=== PATIENT | male | born 1965 | race American Indian/Alaskan Native ===

== ENCOUNTER 2017-08-13 11:25 | Emergency (ER) | payer OTHER ==
[2017-08-13 12:01] LABS: Basophils % (Auto) 1.1 % (0.0-1.8); Eosinophils % (Auto) 0.4 % (0.0-4.3); Hematocrit 45.8 % (35.5-45.6); Hemoglobin 15.4 gm/dl (11.8-15.2); Mean Corpuscular HGB Conc 34 % (32-34); Mean Corpuscular Hemoglobin 31 pg (28-32); Mean Corpuscular Volume 94 fl (84-94); Platelet Count 207 K/mm3 (140-440); Red Blood Count 4.89 M/mm3 (3.65-5.03); Red Cell Distribution Width 16.3 % (13.2-15.2); White Blood Count 9.6 K/mm3 (4.5-11.0)
[2017-08-13] MEDS ORDERED: LIBRIUM PO PRN (12:07)
[2017-08-13] MEDS ORDERED: ATIVAN IV PRN (12:07)
--- NOTE | 2017-08-13 12:07 | Emergency Department Report ---
ED General Adult HPI - General Chief complaint: Seizure Stated complaint: UNRESPONSIVE Time Seen by Provider: 08/13/17 11:59 Source: patient, RN notes reviewed, old records reviewed Mode of arrival: Stretcher Limitations: Altered Mental Status, Other (patient is intoxicated. He is a poor historian.) - History of Present Illness Initial comments: This is a 52-year-old male, the patient is previously unknown to this provider. The patient is stable after being found unresponsive in a hospital elevator, may have had a seizure. Patient indicates that he wants detox from alcohol, apparently he drank earlier on today. The patient denies homicidality and suicidality. The patient denies access to guns and firearms, and he denies hallucinations. He complains of central chest pain, which does not radiate to the back, arms or neck, denies shortness of breath, vomiting diaphoresis, there is no leg pain, there is no leg swelling, no recent trips, no recent surgeries. Patient is unable to describe his exacerbating or relieving factors. -: unknown Consistency: constant Improves with: none Worsens with: none Associated Symptoms: confusion, chest pain, loss of appetite, weakness - Related Data Previous Rx's Medication Instructions Recorded Last Taken Type Phenytoin Sodium Extended 300 mg PO QDAY #30 capsule 08/13/17 Unknown Rx chlordiazePOXIDE [Librium] 25 mg PO Q8H PRN #15 capsule 08/13/17 Unknown Rx Allergies Allergy/AdvReac Type Severity Reaction Status Date / Time No Known Allergies Allergy Unverified 08/13/17 11:28 ED Review of Systems ROS: Stated complaint: UNRESPONSIVE Other details as noted in HPI Comment: Unobtainable due to pts medical conditions ED Past Medical Hx - Past Medical History Previous Medical History?: Yes Hx Seizures: Yes - Surgical History Past Surgical History?: No - Social History Smoking Status: Current Every Day Smoker Substance Use Type: Alcohol - Medications Home Medications: Home Medications Medication Instructions Recorded Confirmed Last Taken Type Phenytoin Sodium Extended 300 mg PO QDAY #30 capsule 08/13/17 Unknown Rx chlordiazePOXIDE [Librium] 25 mg PO Q8H PRN #15 capsule 08/13/17 Unknown Rx ED Physical Exam - General Limitations: Altered Mental Status General appearance: appears intoxicated - Head Head exam: Present: atraumatic, normocephalic - Eye Eye exam: Present: normal appearance, PERRL, EOMI. Absent: nystagmus - ENT ENT exam: Present: normal exam, normal orophraynx, mucous membranes moist, TM's normal bilaterally, normal external ear exam, other (there is no nasal septal hematoma) - Neck Neck exam: Present: normal inspection, full ROM. Absent: tenderness, meningismus - Respiratory Respiratory exam: Present: normal lung sounds bilaterally. Absent: respiratory distress, wheezes, rales, rhonchi, stridor, chest wall tenderness, accessory muscle use, decreased breath sounds, prolonged expiratory - Cardiovascular Cardiovascular Exam: Present: regular rate, normal rhythm, normal heart sounds. Absent: bradycardia, tachycardia, irregular rhythm, systolic murmur, diastolic murmur, rubs, gallop - GI/Abdominal GI/Abdominal exam: Present: soft, normal bowel sounds. Absent: distended, tenderness, guarding, rebound, rigid, pulsatile mass - Rectal Rectal exam: Present: deferred - Extremities Exam Extremities exam: Present: normal inspection, full ROM, normal capillary refill. Absent: pedal edema, joint swelling, calf tenderness - Back Exam Back exam: Present: normal inspection, full ROM. Absent: tenderness, CVA tenderness (R), CVA tenderness (L), muscle spasm, paraspinal tenderness, vertebral tenderness - Neurological Exam Neurological exam: Present: other (there is no facial droop. There is 5 out of 5 strength bilateral upper and lower extremities. The tongue is midline.) - Psychiatric Psychiatric exam: Present: flat affect. Absent: homicidal ideation, suicidal ideation - Skin Skin exam: Present: warm, dry, intact, normal color. Absent: rash ED Course Vital Signs 08/13/17 08/13/17 08/13/17 11:28 11:38 16:32 Temperature 98.1 F 97.9 F Pulse Rate 88 97 H Respiratory 18 16 15 Rate Blood Pressure 118/72 Blood Pressure 97/59 [Left] O2 Sat by Pulse 95 98 100 Oximetry 08/13/17 18:19 Temperature 98.6 F Pulse Rate 75 Respiratory 16 Rate Blood Pressure Blood Pressure 118/72 [Left] O2 Sat by Pulse 99 Oximetry - Reevaluation(s) Reevaluation #1: 08/13/17 13:43 Differential diagnosis: Intracranial injury, cervical spine injury, alcohol withdrawal seizure, convulsion, electrolyte derangement, pneumonia, urinary tract infection Assessment and plan: 52-year-old male who is intoxicated, was found in an elevator, may have had a seizure. No active tongue fasciculations, no active tremors, patient is quite intoxicated at this time. Noncontrast CT scan of the brain and cervical spine negative. Laboratory studies unremarkable, x-ray of the chest unremarkable, urinalysis unremarkable, most likely the patient is simply drunk. I see no indication for antiepileptic drug therapy at this time, patient will be observed on a quality assurance monitor body until he is clinically sober. Repeat EKG, repeat troponin ordered, By history no pulmonary embolus or DVT risk factors, low risk by well's criteria. 13:43 Reevaluation #2: 08/13/17 14:45 Patient now more awake. Requesting to eat. Patient indicates he takes phenytoin/Dilantin. Patient indicates he takes 300 mg. Level is added. Patient has been in the ER for a few hours without any issues with convulsion or seizures. Troponins are negative 2. Repeat EKG is morphologically unchanged from prior EKG. Reevaluation #3: 08/13/17 15:45 Troponin negative 2, repeat level and phenytoin level pending. Blood alcohol level was 0.24 at approximately 12:00 PM, therefore, anticipate clinical sobriety at approximately 6:00 PM. Patient sleeping comfortably, no distress. Care is transferred to the oncoming physician, Dr. Salcedo, to follow-up on repeat blood alcohol level, repeat troponin, and Dilantin level. Thus far, patient has not had any convulsive activity. The patient will also be evaluated by crisis team/mental health to evaluate for suitability for detox. ED Medical Decision Making - Lab Data Result diagrams: 08/13/17 12:18 08/13/17 11:47 Vital Signs 08/13/17 08/13/17 11:28 11:38 Temperature 98.1 F Pulse Rate 88 Respiratory 18 16 Rate Blood Pressure 118/72 O2 Sat by Pulse 95 98 Oximetry Lab Results 08/13/17 08/13/17 08/13/17 Range/Units 11:47 11:47 11:47 WBC 9.6 (4.5-11.0) K/mm3 RBC 4.89 (3.65-5.03) M/mm3 Hgb 15.4 H (11.8-15.2) gm/dl Hct 45.8 H (35.5-45.6) % MCV 94 (84-94) fl MCH 31 (28-32) pg MCHC 34 (32-34) % RDW 16.3 H (13.2-15.2) % Plt Count 207 (140-440) K/mm3 Lymph % (Auto) 20.4 (13.4-35.0) % [place] % (Auto) 8.1 H (0.0-7.3) % Eos % (Auto) 0.4 (0.0-4.3) % Baso % (Auto) 1.1 (0.0-1.8) % Lymph # 2.0 (1.2-5.4) K/mm3 [place] # 0.8 (0.0-0.8) K/mm3 Eos # 0.0 (0.0-0.4) K/mm3 Baso # 0.1 (0.0-0.1) K/mm3 Seg Neutrophils % 70.0 (40.0-70.0) % Seg Neutrophils # 6.7 (1.8-7.7) K/mm3 PT (12.2-14.9) Sec. INR (0.87-1.13) APTT (24.2-36.6) Sec. Sodium 142 (137-145) mmol/L Potassium 3.7 (3.6-5.0) mmol/L Chloride 101.9 (98-107) mmol/L Carbon Dioxide 23 (22-30) mmol/L Anion Gap 21 mmol/L BUN 12 (9-20) mg/dL Creatinine 0.7 L (0.8-1.5) mg/dL Estimated GFR > 60 ml/min BUN/Creatinine Ratio 17 % Glucose 110 H (75-100) mg/dL Calcium 9.0 (8.4-10.2) mg/dL Magnesium (1.7-2.3) mg/dL Total Creatine Kinase (55-170) units/L Troponin T (0.00-0.029) ng/mL Urine Color (Yellow) Urine Turbidity (Clear) Urine pH (5.0-7.0) Ur Specific [place] (1.003-1.030) Urine Protein (Negative) mg/dL Urine Glucose (UA) (Negative) mg/dL Urine Ketones (Negative) mg/dL Urine Blood (Negative) Urine Nitrite (Negative) Urine Bilirubin (Negative) Urine Urobilinogen (<2.0) mg/dL Ur Leukocyte Esterase (Negative) Urine WBC (Auto) (0.0-6.0) /HPF Urine RBC (Auto) (0.0-6.0) /HPF U Epithel Cells (Auto) (0-13.0) /HPF Urine Mucus /HPF Urine Opiates Screen Urine Methadone Screen Ur Barbiturates Screen Ur Phencyclidine Scrn Ur Amphetamines Screen U Benzodiazepines Scrn Urine Cocaine Screen U Marijuana (THC) Screen Drugs of Abuse Note Plasma/Serum Alcohol 0.24 H (0-0.07) gm% 08/13/17 08/13/17 08/13/17 Range/Units 12:03 12:03 12:18 WBC 9.5 (4.5-11.0) K/mm3 RBC 4.77 (3.65-5.03) M/mm3 Hgb 15.3 H (11.8-15.2) gm/dl Hct 44.3 (35.5-45.6) % MCV 93 (84-94) fl MCH 32 (28-32) pg MCHC 35 H (32-34) % RDW 16.5 H (13.2-15.2) % Plt Count 202 (140-440) K/mm3 Lymph % (Auto) (13.4-35.0) % [place] % (Auto) (0.0-7.3) % Eos % (Auto) (0.0-4.3) % Baso % (Auto) (0.0-1.8) % Lymph # (1.2-5.4) K/mm3 [place] # (0.0-0.8) K/mm3 Eos # (0.0-0.4) K/mm3 Baso # (0.0-0.1) K/mm3 Seg Neutrophils % (40.0-70.0) % Seg Neutrophils # (1.8-7.7) K/mm3 PT (12.2-14.9) Sec. INR (0.87-1.13) APTT (24.2-36.6) Sec. Sodium (137-145) mmol/L Potassium (3.6-5.0) mmol/L Chloride (98-107) mmol/L Carbon Dioxide (22-30) mmol/L Anion Gap mmol/L BUN (9-20) mg/dL Creatinine (0.8-1.5) mg/dL Estimated GFR ml/min BUN/Creatinine Ratio % Glucose (75-100) mg/dL Calcium (8.4-10.2) mg/dL Magnesium (1.7-2.3) mg/dL Total Creatine Kinase (55-170) units/L Troponin T (0.00-0.029) ng/mL Urine Color Yellow (Yellow) Urine Turbidity Clear (Clear) Urine pH 5.0 (5.0-7.0) Ur Specific [place] 1.009 (1.003-1.030) Urine Protein <15 mg/dl (Negative) mg/dL Urine Glucose (UA) Neg (Negative) mg/dL Urine Ketones Neg (Negative) mg/dL Urine Blood Neg (Negative) Urine Nitrite Neg (Negative) Urine Bilirubin Neg (Negative) Urine Urobilinogen < 2.0 (<2.0) mg/dL Ur Leukocyte Esterase Neg (Negative) Urine WBC (Auto) 3.0 (0.0-6.0) /HPF Urine RBC (Auto) 4.0 (0.0-6.0) /HPF U Epithel Cells (Auto) < 1.0 (0-13.0) /HPF Urine Mucus Few /HPF Urine Opiates Screen Presumptive negative Urine Methadone Screen Presumptive negative Ur Barbiturates Screen Presumptive negative Ur Phencyclidine Scrn Presumptive negative Ur Amphetamines Screen Presumptive negative U Benzodiazepines Scrn Presumptive negative Urine Cocaine Screen Presumptive positive U Marijuana (THC) Screen Presumptive positive Drugs of Abuse Note Disclamer Plasma/Serum Alcohol (0-0.07) gm% 08/13/17 08/13/17 Range/Units 12:18 12:18 WBC (4.5-11.0) K/mm3 RBC (3.65-5.03) M/mm3 Hgb (11.8-15.2) gm/dl Hct (35.5-45.6) % MCV (84-94) fl MCH (28-32) pg MCHC (32-34) % RDW (13.2-15.2) % Plt Count (140-440) K/mm3 Lymph % (Auto) (13.4-35.0) % [place] % (Auto) (0.0-7.3) % Eos % (Auto) (0.0-4.3) % Baso % (Auto) (0.0-1.8) % Lymph # (1.2-5.4) K/mm3 [place] # (0.0-0.8) K/mm3 Eos # (0.0-0.4) K/mm3 Baso # (0.0-0.1) K/mm3 Seg Neutrophils % (40.0-70.0) % Seg Neutrophils # (1.8-7.7) K/mm3 PT 13.6 (12.2-14.9) Sec. INR 0.99 (0.87-1.13) APTT 28.8 (24.2-36.6) Sec. Sodium (137-145) mmol/L Potassium (3.6-5.0) mmol/L Chloride (98-107) mmol/L Carbon Dioxide (22-30) mmol/L Anion Gap mmol/L BUN (9-20) mg/dL Creatinine (0.8-1.5) mg/dL Estimated GFR ml/min BUN/Creatinine Ratio % Glucose (75-100) mg/dL Calcium (8.4-10.2) mg/dL Magnesium 2.00 (1.7-2.3) mg/dL Total Creatine Kinase 266 H (55-170) units/L Troponin T < 0.010 (0.00-0.029) ng/mL Urine Color (Yellow) Urine Turbidity (Clear) Urine pH (5.0-7.0) Ur Specific [place] (1.003-1.030) Urine Protein (Negative) mg/dL Urine Glucose (UA) (Negative) mg/dL Urine Ketones (Negative) mg/dL Urine Blood (Negative) Urine Nitrite (Negative) Urine Bilirubin (Negative) Urine Urobilinogen (<2.0) mg/dL Ur Leukocyte Esterase (Negative) Urine WBC (Auto) (0.0-6.0) /HPF Urine RBC (Auto) (0.0-6.0) /HPF U Epithel Cells (Auto) (0-13.0) /HPF Urine Mucus /HPF Urine Opiates Screen Urine Methadone Screen Ur Barbiturates Screen Ur Phencyclidine Scrn Ur Amphetamines Screen U Benzodiazepines Scrn Urine Cocaine Screen U Marijuana (THC) Screen Drugs of Abuse Note Plasma/Serum Alcohol (0-0.07) gm% - EKG Data -: EKG Interpreted by Me - EKG Data 08/13/17 13:45 Normal sinus, 85 bpm, normal axis, normal intervals, poor R-wave progression in V2, not morphologically consistent with STEMI. 08/13/17 14:45 Repeat EKG is unremarkable/unchanged when compared to prior. - Radiology Data Radiology results: report reviewed, image reviewed X-ray of the chest is negative. Noncontrast CT scan of the brain and cervical spine negative. Critical care attestation.: If time is entered above; I have spent that time in minutes in the direct care of this critically ill patient, excluding procedure time. ED Disposition Clinical Impression: Alcohol abuse Disposition: DC-01 TO HOME OR SELFCARE Is pt being admited?: No Does the pt Need Aspirin: No Condition: Stable Instructions: Alcohol Withdrawal (ED) Additional Instructions: Do not drive a car or operate motor vehicles for the next 6 months. Follow up with outpatient primary care doctor within the next 2 weeks. Follow up with outpatient [facility] health resources[facility] department within the next 2 weeks. Return to the ER right away with fevers, chills, chest pain, shortness of breath, intractable nausea or vomiting, confusion, inability to tolerate liquid feeds. Follow up with either primary care or cardiology within the next 2 weeks for chest pain. Prescriptions: chlordiazePOXIDE [Librium] 25 mg PO Q8H PRN #15 capsule PRN Reason: Alcohol Withdrawal Phenytoin Sodium Extended 300 mg PO QDAY #30 capsule Referrals: PRIMARY MD ABELINO [Primary Care Provider] - 3-5 Days CHACE RENTERIA MD [Staff Physician] - 3-5 Days [facility] [Provider Group] - 3-5 Days [facility] [Provider Group] - 3-5 Days
[2017-08-13 12:13] LABS: Urine Drugs of Abuse Note Disclamer
[2017-08-13 12:16] LABS: Anion Gap 21 mmol/L; BUN/Creatinine Ratio 17; Blood Urea Nitrogen 12 mg/dL (9-20); Carbon Dioxide 23 mmol/L (22-30); Chloride 101.9 mmol/L (98-107); Glucose 110 mg/dL (75-100); Potassium 3.7 mmol/L (3.6-5.0); Sodium 142 mmol/L (137-145)
[2017-08-13 12:25] LABS: Bilirubin,Urine NEG (Negative); Blood,Urine NEG (Negative); Ketones,Urine NEG (Negative); Leukocyte Esterase,Urine NEG (Negative); Mucus,Urine FEW /HPF; Nitrite,Urine NEG (Negative); Protein,Urine <15 mg/dL mg/dL (Negative); Urobilinogen,Urine < 2.0 mg/dL (<2.0)
--- NOTE | 2017-08-13 12:31 | XRay Report ---
AP CHEST: HISTORY: chest pain AP view of the chest demonstrates a normal mediastinal and cardiac contour with clear lungs and normal bony and soft tissue structures. IMPRESSION: Unremarkable AP chest.
[2017-08-13 12:39] LABS: Hematocrit 44.3 % (35.5-45.6); Hemoglobin 15.3 gm/dl (11.8-15.2); Mean Corpuscular HGB Conc 35 % (32-34); Mean Corpuscular Hemoglobin 32 pg (28-32); Mean Corpuscular Volume 93 fl (84-94); Platelet Count 202 K/mm3 (140-440); Red Blood Count 4.77 M/mm3 (3.65-5.03); Red Cell Distribution Width 16.5 % (13.2-15.2); White Blood Count 9.5 K/mm3 (4.5-11.0)
[2017-08-13 12:50] LABS: INR 0.99 (0.87-1.13)
[2017-08-13 12:51] LABS: Partial Thromboplastin Time 28.8 Sec. (24.2-36.6)
[2017-08-13] MEDS ORDERED: D5/0.45NS 1,000 ML IV SCH (13:00)
[2017-08-13 13:02] LABS: Creatine Kinase 266 units/L (55-170)
--- NOTE | 2017-08-13 13:11 | Cat Scan Report ---
CT of the cervical spine including axial, reformatted sagittal and coronal images. History: Neck trauma/seizure. Findings: There is no evidence of fracture or subluxation. Multilevel cervical spondylosis is present, most pronounced at C6-7. The odontoid is intact. Impression: No acute findings.
--- NOTE | 2017-08-13 13:21 | Cat Scan Report ---
CT HEAD WITHOUT CONTRAST: HISTORY: Seizure. Serial contiguous axial images were obtained through the cranium. Intravenous contrast material was not administered. The ventricles are normal in size and appearance. There is no mass effect or midline shift. No areas of abnormally increased or decreased attenuation are seen. No mass lesion is seen. The mastoid air cells and visualized portions of the sinuses are normal. IMPRESSION: Cranial CT scan within normal limits.
[2017-08-13] MEDS ORDERED: ZOFRAN IV PRN (13:46)
[2017-08-13] MEDS ORDERED: VITAMIN B-1 100 MG, FOLVITE 1 MG, INFUVITE 10 ML in NACL 0.9% 1000 ML 1,000 ML IV ONE (14:30)
[2017-08-13 18:20] VITALS: BP 118/72
--- NOTE | 2017-08-13 19:18 | Emergency Department Report ---
Blank Doc - Documentation Documentation: I was signed out this patient by my colleague, Dr. Heller, with the instructions to follow-up with a repeat troponin and blood alcohol level. The blood alcohol was drawn again here around 6 PM and came back at 0.12. It is now close to 7:30 and the patient will be at a level consistent with the legal limits. He is seen ambulatory, AAO 3 and does not appear to be in any distress. His third troponin came back negative as well. He says that someone is coming to get him from the emergency department. These reasons he appears safe for discharge and will be given the discharge instructions and prescriptions per Dr. Heller.
== END 2017-08-13 19:28 | disposition home or self-care (01) ==
LOC: ED 11:25
DX: F10.10 Alcohol abuse, uncomplicated (principal); F17.210 Nicotine dependence, cigarettes, uncomplicated
CPT/HCPCS: 36415; 70450; 71010; 72125; 80048; 80185; 80307; 81001; 82550; 83735; 84484; 85025; 85027; 85610; 85730; 93005; 93010; 96365; 96366; 99285; G0480; J3411; J7030; 80320

== ENCOUNTER 2017-12-04 04:52 | Emergency (ER) | payer SELFPAY | END 2017-12-04 07:00 | disposition left against medical advice (07) | LOC: ED 04:52 | DX: M25.579 Pain in unspecified ankle and joints of unspecified foot (principal); Z53.21 Procedure and treatment not carried out due to patient leaving prior to being seen by health care provider ==

== ENCOUNTER 2017-12-10 11:41 | Emergency (ER) | payer SELFPAY ==
--- NOTE | 2017-12-10 14:23 | XRay Report ---
RIGHT ANKLE, 3 views: History: Pain and swelling. An oblique nondisplaced fracture is identified in the distal fibula just proximal to the ankle joint. No calcified callus is identified. The remaining bony structures are intact. The ankle mortise is within normal limits. There is moderate lateral soft tissue swelling. IMPRESSION: Distal fibular fracture.
--- NOTE | 2017-12-10 22:28 | Emergency Department Report ---
HPI - General Chief Complaint: Extremity Injury, Lower Time Seen by Provider: 12/10/17 22:24 - HPI HPI: This is a 52 year-old male presents to the emergency department with 2 different complaints. First, the patient says that he has right ankle pain has been going on for the past week when he slipped on the ice and rolled his foot/ankle. It has been getting impressively worse, it is swollen and he has trouble walking on it and/or bearing weight. Secondarily, the patient is asking for some assistance for alcohol detox. He says he last drank this morning because he was trying to treat the shakes. He does have a history of seizures. He denies any illicit drug use. He does not have a primary care physician. He was dropped off today by someone from an [place] program. ED Past Medical Hx - Past Medical History Previous Medical History?: No Hx Seizures: Yes - Surgical History Past Surgical History?: No - Social History Smoking Status: Current Every Day Smoker Substance Use Type: Alcohol - Medications Home Medications: Home Medications Medication Instructions Recorded Confirmed Last Taken Type Phenytoin Sodium Extended 300 mg PO QDAY #30 capsule 08/13/17 Unknown Rx chlordiazePOXIDE [Librium] 25 mg PO Q8H PRN #18 capsule 12/11/17 Unknown Rx ED Review of Systems ROS: Stated complaint: RIGHT ANKLE PAIN, MEDICAL CLEARANCE Other details as noted in HPI Comment: All other systems reviewed and negative Constitutional: denies: chills, fever Eyes: denies: eye pain, eye discharge, vision change ENT: denies: ear pain, throat pain Respiratory: denies: cough, shortness of breath, wheezing Cardiovascular: denies: chest pain, palpitations Gastrointestinal: denies: abdominal pain, nausea, diarrhea Genitourinary: denies: urgency, dysuria Musculoskeletal: joint swelling, arthralgia Skin: denies: rash, lesions Neurological: denies: headache, weakness, paresthesias Physical Exam - Physical Exam Vital Signs: Vital Signs 12/10/17 12:09 Temperature 98.9 F Pulse Rate 117 H Respiratory 16 Rate Blood Pressure 121/62 O2 Sat by Pulse 96 Oximetry Physical Exam: GENERAL: The patient is well-developed well-nourished. HENT: Normocephalic. Atraumatic. Patient has moist mucous membranes. EYES: Extraocular motions are intact. Pupils equal reactive to light bilaterally. NECK: Supple. Trachea is midline. CHEST/LUNGS: Clear to auscultation. There is no respiratory distress noted. HEART/CARDIOVASCULAR: Regular. There is mild tachycardia. There is no murmur. ABDOMEN: Abdomen is soft, nontender. Patient has normal bowel sounds. There is no abdominal distention. SKIN: Skin is warm and dry. Mild right ankle circumferential swelling. NEURO: The patient is awake, alert, and oriented. The patient is cooperative. The patient has no focal neurologic deficits. The patient has normal speech. MUSCULOSKELETAL: Tenderness to palpation to the right ankle. Decreased range of motion of the right foot and ankle secondary to pain. ED Course Vital Signs 12/10/17 12:09 Temperature 98.9 F Pulse Rate 117 H Respiratory 16 Rate Blood Pressure 121/62 O2 Sat by Pulse 96 Oximetry ED Medical Decision Making - Lab Data Result diagrams: 12/10/17 23:22 12/10/17 23:22 - Radiology Data Radiology results: image reviewed interpreted by me: X-ray of the right ankle shows a distal fibular fracture - Medical Decision Making Patient had 2 complaints. Regarding the ankle pain, he has a distal fibular fracture. He is neurovascularly intact. Placed in a splint and placed on crutches and will be given referral for orthopedist. Regarding his alcohol abuse and detox request, the patient was seen by the psych flame annealing machine operator and there is no way for us to directly sent him as an admit for a alcohol detox and he was given referrals for multiple different centers for help with his rehabilitation and/or detox. The patient had a blood alcohol level of 0.19 at about 11:30 PM. He was under the legal limit by the time he was discharged at 6 AM. He had some minor tremors but was still very low on a CIWA score. Since we are not able to rectally send him to a detox center, he was given a 4 day taper of Librium to help him with alcohol withdrawal. He understands that Librium itself can be sedating and has side effects of respiratory depression if mixed with alcohol and that he should stop the medication if he decides not to continue with his detox. Labs were otherwise unremarkable. Patient will return to the ER with any worsening of symptoms or any acute distress. - Differential Diagnosis alcohol intoxication, alcohol withdrawal, ankle fracture, ankle sprain Critical Care Time: No Critical care attestation.: If time is entered above; I have spent that time in minutes in the direct care of this critically ill patient, excluding procedure time. ED Disposition Clinical Impression: Alcohol abuse Alcohol dependence Qualifiers: Substance use status: in withdrawal Complication of substance-induced condition : uncomplicated Qualified Code(s): F10.230 - Alcohol dependence with withdrawal , uncomplicated Fracture of distal fibula Qualifiers: Encounter type: initial encounter Fracture type: closed Fracture morphology: unspecified fracture morphology Laterality: right Qualified Code(s): S82.831A - Other fracture of upper and lower end of right fibula, initial encounter for closed fracture Disposition: TO HOME OR SELFCARE Is pt being admited?: No Condition: Stable Instructions: Ankle Fracture (ED), Alcohol Intoxication (ED), Alcohol Withdrawal (ED) Additional Instructions: I have given you a referral for 2 different orthopedists regarding your ankle fracture, Dr. Rodriguez and the [facility] orthopedic group. You have also been given 3 different referrals to help you with your alcohol dependence and withdrawal. I am starting you on a short Librium taper to help you with the withdrawal. This medication cannot be mixed with alcohol as it can cause respiratory depression and sedation. If you are unable to stop drinking alcohol , then do not take this medication. Return to the emergency Department with any worsening of your symptoms or any acute distress. Prescriptions: chlordiazePOXIDE [Librium] 25 mg PO Q8H PRN #18 capsule PRN Reason: Alcohol Withdrawal Referrals: [facility] [Provider Group] - 3-5 Days PRIMARY [facility]ARE, [Primary Care Provider] - 3-5 Days DANE RODRIGUEZ MD [Staff Physician] - 3-5 Days
[2017-12-11 00:08] LABS: Basophils # (Auto) 0.1 K/mm3 (0.0-0.1); Basophils % (Auto) 0.8 % (0.0-1.8); Eosinophils # (Auto) 0.1 K/mm3 (0.0-0.4); Hematocrit 38.9 % (35.5-45.6); Hemoglobin 12.8 gm/dl (11.8-15.2); Lymphocytes # (Auto) 2.6 K/mm3 (1.2-5.4); Lymphocytes % (Auto) 39.8 % (13.4-35.0); Mean Corpuscular HGB Conc 33 % (32-34); Mean Corpuscular Hemoglobin 29 pg (28-32); Mean Corpuscular Volume 88 fl (84-94); Monocytes # (Auto) 0.5 K/mm3 (0.0-0.8); Monocytes % (Auto) 8.3 % (0.0-7.3); Platelet Count 222 K/mm3 (140-440)
[2017-12-11 00:18] LABS: Alanine Aminotransferase 32 units/L (7-56); Albumin 4.1 g/dL (3.9-5); BUN/Creatinine Ratio 11; Blood Urea Nitrogen 8 mg/dL (9-20); Calcium 9.4 mg/dL (8.4-10.2); Hemolysis Index 32
[2017-12-11] MEDS ORDERED: VITAMIN B-1 100 MG, FOLVITE 1 MG, INFUVITE 10 ML in NACL 0.9% 1000 ML 1,000 ML IV ONE (00:30)
[2017-12-11 07:26] VITALS: BP 125/76
== END 2017-12-11 07:00 | disposition home or self-care (01) ==
LOC: ED 11:41
DX: S82.831A Other fracture of upper and lower end of right fibula, initial encounter for closed fracture (principal); F10.230 Alcohol dependence with withdrawal, uncomplicated; F17.200 Nicotine dependence, unspecified, uncomplicated; W00.2XXA Other fall from one level to another due to ice and snow, initial encounter; Y93.89 Activity, other specified; Y99.8 Other external cause status; Y92.89 Other specified places as the place of occurrence of the external cause
CPT/HCPCS: 29515; 36415; 73610; 80053; 82962; 85025; 96365; 96366; 99284; G0480; J3411; J7030; 80320

== ENCOUNTER 2021-01-16 11:01 | Inpatient (IN) | payer OTHER ==
[2021-01-16] MEDS ORDERED: LORazepam 2 MG/ML VIAL IV PRN (11:19)
[2021-01-16] MEDS ORDERED: chlordiazePOXIDE 25 MG CAP PO PRN ×2 (11:19)
[2021-01-16] MEDS ORDERED: SODIUM CHLORIDE 0.9% 1000 ML 1,000 ML IV ONE (11:21)
[2021-01-16] MEDS ORDERED: DEXTROSE 50% IN WATER (25GM) 50 ML SYRINGE IV ONE (11:21)
--- NOTE | 2021-01-16 11:25 | Emergency Department Report ---
ED General Adult HPI - General Chief complaint: Altered Mental Status Stated complaint: HYPOGLYCEMIA Time Seen by Provider: 01/16/21 11:19 Source: patient Mode of arrival: Ambulatory Limitations: Altered Mental Status - History of Present Illness Initial comments: Patient presents to the emergency department after being found in the parking lot of the hospital line on the ground. Patient states that he think he had a seizure because he stopped drinking this morning. Patient states he is a heavy daily drinker and decided to stop drinking today cold turkey. Patient is confused and having some hallucinations on initial evaluation. It was found th at the patient's blood glucose level was 69 upon his arrival to his room. Patient does have a history of seizures and takes Dilantin for his seizures. -: Sudden Severity scale (0 -10): 0 Consistency: now resolved Improves with: none Worsens with: none Associated Symptoms: denies other symptoms Treatments Prior to Arrival: none - Related Data Home Medications Medication Instructions Recorded Confirmed Last Taken No Known Home Medications [No 09/16/18 09/21/18 Unknown Reported Home Medications] Allergies Allergy/AdvReac Type Severity Reaction Status Date / Time No Known Allergies Allergy Verified 09/15/18 16:58 ED Review of Systems ROS: Stated complaint: HYPOGLYCEMIA Other details as noted in HPI Constitutional: denies: chills, fever Eyes: denies: eye pain, eye discharge, vision change ENT: denies: ear pain, throat pain Respiratory: denies: cough, shortness of breath, wheezing Cardiovascular: denies: chest pain, palpitations Endocrine: no symptoms reported Gastrointestinal: denies: abdominal pain, nausea, diarrhea Genitourinary: denies: urgency, dysuria Musculoskeletal: denies: back pain, joint swelling, arthralgia Skin: denies: rash, lesions Neurological: confusion. denies: headache, weakness, paresthesias Psychiatric: denies: anxiety, depression Hematological/Lymphatic: denies: easy bleeding, easy bruising ED Past Medical Hx - Past Medical History Previous Medical History?: Yes Hx Congestive Heart Failure: No Hx Diabetes: Yes Hx Seizures: Yes Hx Asthma: No Hx COPD: No - Surgical History Past Surgical History?: No - Social History Smoking Status: Current Every Day Smoker Substance Use Type: Alcohol, Cocaine - Medications Home Medications: Home Medications Medication Instructions Recorded Confirmed Last Taken Type No Known Home Medications [No 09/16/18 09/21/18 Unknown History Reported Home Medications] ED Physical Exam - General Limitations: Altered Mental Status General appearance: alert, in no apparent distress - Head Head exam: Present: atraumatic, normocephalic - Eye Eye exam: Present: normal appearance, PERRL, EOMI - ENT ENT exam: Present: mucous membranes moist - Neck Neck exam: Present: normal inspection - Respiratory Respiratory exam: Present: normal lung sounds bilaterally. Absent: respiratory distress - Cardiovascular Cardiovascular Exam: Present: regular rate, normal rhythm. Absent: systolic murmur, diastolic murmur, rubs, gallop - GI/Abdominal GI/Abdominal exam: Present: soft, normal bowel sounds. Absent: distended, tenderness - Rectal Rectal exam: Present: deferred - Extremities Exam Extremities exam: Present: normal inspection - Back Exam Back exam: Present: normal inspection - Neurological Exam Neurological exam: Present: alert, CN II-XII intact, other (Patient is oriented to person and place but not time; patient is confused on exam but is able to answer questions with redirection). Absent: motor sensory deficit - Psychiatric Psychiatric exam: Present: normal affect, normal mood - Skin Skin exam: Present: warm, dry, intact, normal color. Absent: rash ED Course Vital Signs 01/16/21 01/16/21 01/16/21 11:04 12:06 12:15 Temperature 98.6 F Pulse Rate 98 H 97 H Respiratory 16 14 11 L Rate Blood Pressure 98/71 90/53 O2 Sat by Pulse 97 94 Oximetry 01/16/21 01/16/21 01/16/21 12:31 12:45 13:01 Temperature Pulse Rate 93 H 89 87 Respiratory 19 19 16 Rate Blood Pressure 90/63 97/56 89/56 O2 Sat by Pulse 93 93 98 Oximetry 01/16/21 01/16/21 01/16/21 13:15 13:31 13:45 Temperature Pulse Rate 84 82 75 Respiratory 16 16 17 Rate Blood Pressure 96/57 100/60 108/74 O2 Sat by Pulse 99 99 100 Oximetry 01/16/21 01/16/21 01/16/21 14:01 14:15 14:31 Temperature Pulse Rate 72 93 H 74 Respiratory 18 13 20 Rate Blood Pressure 118/82 98/67 106/69 O2 Sat by Pulse 99 97 99 Oximetry 01/16/21 01/16/21 14:45 15:01 Temperature Pulse Rate 81 83 Respiratory 17 16 Rate Blood Pressure 90/58 91/61 O2 Sat by Pulse 98 98 Oximetry ED Medical Decision Making - Lab Data Result diagrams: 01/16/21 11:32 01/16/21 11:32 Lab Results 01/16/21 01/16/21 01/16/21 Range/Units 11:32 11:32 11:32 WBC 8.8 (4.5-11.0) K/mm3 RBC 4.60 (3.65-5.03) M/mm3 Hgb 15.9 H (11.8-15.2) gm/dl Hct 45.3 (35.5-45.6) % MCV 98 H (84-94) fl MCH 35 H (28-32) pg MCHC 35 H (32-34) % RDW 14.8 (13.2-15.2) % Plt Count 416 (140-440) K/mm3 Lymph % (Auto) 23.8 (13.4-35.0) % [place] % (Auto) 3.7 (0.0-7.3) % Eos % (Auto) 1.6 (0.0-4.3) % Baso % (Auto) 1.1 (0.0-1.8) % Lymph # (Auto) 2.1 (1.2-5.4) K/mm3 [place] # (Auto) 0.3 (0.0-0.8) K/mm3 Eos # (Auto) 0.1 (0.0-0.4) K/mm3 Baso # (Auto) 0.1 (0.0-0.1) K/mm3 Seg Neutrophils % 69.8 (40.0-70.0) % Seg Neutrophils # 6.1 (1.8-7.7) K/mm3 Sodium 132 L (137-145) mmol/L Potassium TNR Chloride 98.0 (98-107) mmol/L Carbon Dioxide 17 L (22-30) mmol/L Anion Gap 26 mmol/L BUN 9 (9-20) mg/dL Creatinine 0.7 L (0.8-1.3) mg/dL Estimated GFR > 60 ml/min BUN/Creatinine Ratio 13 % Glucose 73 L (75-100) mg/dL Calcium 9.4 (8.4-10.2) mg/dL Magnesium 2.20 (1.7-2.3) mg/dL Total Bilirubin 0.50 (0.1-1.2) mg/dL Direct Bilirubin 0.2 (0-0.2) mg/dL Indirect Bilirubin 0.3 mg/dL AST 77 H (5-40) units/L ALT 16 (7-56) units/L Alkaline Phosphatase 76 (35-129) units/L Ammonia 22.0 L (25-60) umol/L Total Creatine Kinase (55-170) units/L Total Protein 8.5 H (6.3-8.2) g/dL Albumin 4.3 (3.9-5) g/dL Albumin/Globulin Ratio 1.0 % Phenytoin (10.0-20.0) ug/mL Plasma/Serum Alcohol (0-0.07) % 01/16/21 01/16/21 01/16/21 Range/Units 11:32 11:32 11:32 WBC (4.5-11.0) K/mm3 RBC (3.65-5.03) M/mm3 Hgb (11.8-15.2) gm/dl Hct (35.5-45.6) % MCV (84-94) fl MCH (28-32) pg MCHC (32-34) % RDW (13.2-15.2) % Plt Count (140-440) K/mm3 Lymph % (Auto) (13.4-35.0) % [place] % (Auto) (0.0-7.3) % Eos % (Auto) (0.0-4.3) % Baso % (Auto) (0.0-1.8) % Lymph # (Auto) (1.2-5.4) K/mm3 [place] # (Auto) (0.0-0.8) K/mm3 Eos # (Auto) (0.0-0.4) K/mm3 Baso # (Auto) (0.0-0.1) K/mm3 Seg Neutrophils % (40.0-70.0) % Seg Neutrophils # (1.8-7.7) K/mm3 Sodium (137-145) mmol/L Potassium Chloride (98-107) mmol/L Carbon Dioxide (22-30) mmol/L Anion Gap mmol/L BUN (9-20) mg/dL Creatinine (0.8-1.3) mg/dL Estimated GFR ml/min BUN/Creatinine Ratio % Glucose (75-100) mg/dL Calcium (8.4-10.2) mg/dL Magnesium (1.7-2.3) mg/dL Total Bilirubin (0.1-1.2) mg/dL Direct Bilirubin (0-0.2) mg/dL Indirect Bilirubin mg/dL AST (5-40) units/L ALT (7-56) units/L Alkaline Phosphatase (35-129) units/L Ammonia (25-60) umol/L Total Creatine Kinase 199 H (55-170) units/L Total Protein (6.3-8.2) g/dL Albumin (3.9-5) g/dL Albumin/Globulin Ratio % Phenytoin 1.3 L (10.0-20.0) ug/mL Plasma/Serum Alcohol 0.22 H (0-0.07) % 01/16/21 Range/Units 12:30 WBC (4.5-11.0) K/mm3 RBC (3.65-5.03) M/mm3 Hgb (11.8-15.2) gm/dl Hct (35.5-45.6) % MCV (84-94) fl MCH (28-32) pg MCHC (32-34) % RDW (13.2-15.2) % Plt Count (140-440) K/mm3 Lymph % (Auto) (13.4-35.0) % [place] % (Auto) (0.0-7.3) % Eos % (Auto) (0.0-4.3) % Baso % (Auto) (0.0-1.8) % Lymph # (Auto) (1.2-5.4) K/mm3 [place] # (Auto) (0.0-0.8) K/mm3 Eos # (Auto) (0.0-0.4) K/mm3 Baso # (Auto) (0.0-0.1) K/mm3 Seg Neutrophils % (40.0-70.0) % Seg Neutrophils # (1.8-7.7) K/mm3 Sodium (137-145) mmol/L Potassium Chloride (98-107) mmol/L Carbon Dioxide (22-30) mmol/L Anion Gap mmol/L BUN (9-20) mg/dL Creatinine (0.8-1.3) mg/dL Estimated GFR ml/min BUN/Creatinine Ratio % Glucose (75-100) mg/dL Calcium (8.4-10.2) mg/dL Magnesium (1.7-2.3) mg/dL Total Bilirubin (0.1-1.2) mg/dL Direct Bilirubin (0-0.2) mg/dL Indirect Bilirubin mg/dL AST (5-40) units/L ALT (7-56) units/L Alkaline Phosphatase (35-129) units/L Ammonia (25-60) umol/L Total Creatine Kinase 102 (55-170) units/L Total Protein (6.3-8.2) g/dL Albumin (3.9-5) g/dL Albumin/Globulin Ratio % Phenytoin (10.0-20.0) ug/mL Plasma/Serum Alcohol (0-0.07) % - Radiology Data Radiology results: report reviewed - Medical Decision Making The patient has hallucinations on exam as well as tremors for alcohol withdrawal CIWA protocol initiated in the first CIWA score was a 10 Patient had a seizure while receiving CT scan of the head Patient was given doses of Ativan for alcohol withdrawal IV fluids and banana bag were also given Patient placed on 2012 Critical Care Time: Yes Critical care time in (mins) excluding proc time.: 35 Critical care attestation.: If time is entered above; I have spent that time in minutes in the direct care of this critically ill patient, excluding procedure time. ED Disposition Clinical Impression: Alcohol withdrawal delirium, acute, mixed level of activity, Alcohol withdrawal seizure Disposition: OP ADMIT IP TO THIS HOSP Is pt being admited?: Yes Does the pt Need Aspirin: No Condition: Fair Referrals: PRIMARY CARE, [Primary Care Provider] - 3-5 Days
[2021-01-16 11:50] LABS: Basophils # (Auto) 0.1 K/mm3 (0.0-0.1); Basophils % (Auto) 1.1 % (0.0-1.8); Eosinophils # (Auto) 0.1 K/mm3 (0.0-0.4); Eosinophils % (Auto) 1.6 % (0.0-4.3); Hematocrit 45.3 % (35.5-45.6); Hemoglobin 15.9 gm/dl (11.8-15.2); Lymphocytes # (Auto) 2.1 K/mm3 (1.2-5.4); Lymphocytes % (Auto) 23.8 % (13.4-35.0); Mean Corpuscular HGB Conc 35 % (32-34); Mean Corpuscular Volume 98 fl (84-94); Monocytes # (Auto) 0.3 K/mm3 (0.0-0.8); Monocytes % (Auto) 3.7 % (0.0-7.3); Platelet Count 416 K/mm3 (140-440); Red Cell Distribution Width 14.8 % (13.2-15.2)
[2021-01-16] MEDS ORDERED: THIAMINE 100 MG, FOLIC ACID 1 MG, MULTIPLE VITAMIN INJ, ADULT 10 ML in SODIUM CHLORIDE ... IV ONE (12:00)
[2021-01-16] MEDS: LORazepam 2 MG/ML VIAL IV PRN ×5 (12:09→17:40)
[2021-01-16 12:13] LABS: Albumin 4.3 g/dL (3.9-5); Bilirubin,Direct 0.2 mg/dL (0-0.2); Blood Urea Nitrogen 9 mg/dL (9-20); Calcium 9.4 mg/dL (8.4-10.2); Hemolysis Index 974
[2021-01-16 12:17] LABS: BUN/Creatinine Ratio 13
[2021-01-16 12:50] LABS: Alanine Aminotransferase 16 units/L (7-56)
[2021-01-16] MEDS ORDERED: PHENYTOIN 1,000 MG in SODIUM CHLORIDE 0.9% 250ML 250 ML IV ONE (13:00)
--- NOTE | 2021-01-16 13:18 | Cat Scan Report ---
CT BRAIN: 01/16/2021 INDICATION / CLINICAL INFORMATION: syncope. COMPARISON: 09/21/2018 FINDINGS: BRAIN/INTRACRANIAL STRUCTURES: Unenhanced CT images of the brain demonstrate no evidence of acute int racranial abnormality. Ventricles and sulci are prominent in size, consistent with diffuse cerebral atrophy, more prominent than is typically seen in a patient of this age. This is not changed when compared to the prior exam. White matter hypoattenuation is present throughout the cerebral hemispheric white matter, with more f ocal hypoattenuation present in the left parietal and right frontal lobes. The appearance is consiste nt with chronic small vessel ischemic change, and has not changed when compared to the prior exam. There is no CT evidence of acute large vessel territory ischemic injury, hemorrhage, or mass. There a re no abnormal extra-axial fluid collections. At this chronic vascular calcifications are noted. EXTRACRANIAL STRUCTURES: Unremarkable. IMPRESSION: No acute abnormality. Stable chronic and age-related changes. All CT scans at this location are performed using dose reduction to ALARA by means of automated expos ure control. Signer Name: Harjit Wood MD Signed: 01/16/2021 1:14 PM Workstation Name: [id number]
[2021-01-16] MEDS ORDERED: levETIRAcetam 1000 MG/NS 0.75% 1,000 MG/100 ML BAG IV ONE ×3 (15:23→19:00)
[2021-01-16] MEDS ORDERED: SODIUM CHLORIDE 0.9% 1000 ML 1,000 ML IV SCH (15:30)
[2021-01-16] MEDS ORDERED: HALOPERIDOL LACTATE 5 MG/1 ML INJ IM ONE (17:45)
[2021-01-16] MEDS ORDERED: ACETAMINOPHEN 325 MG TAB PO PRN (21:27)
[2021-01-16] MEDS ORDERED: HYDROmorphone 1 MG/1 ML INJ IV PRN (21:27)
[2021-01-16] MEDS ORDERED: ONDANSETRON 4 MG/2 ML INJ IV PRN (21:27)
[2021-01-16] MEDS ORDERED: oxyCODONE /ACETAMINOPHEN 5-325MG TAB PO PRN (21:27)
[2021-01-16] MEDS ORDERED: METOCLOPRAMIDE 10 MG/2 ML INJ IV PRN (21:27)
--- NOTE | 2021-01-16 21:27 | History and Physical Report ---
History of Present Illness Date of examination: 01/16/21 Date of admission: 01/16/21 15:51 Chief complaint: Seizures in the hospital parking not this a.m. History of present illness: 55-year-old male with no significant past medical history except alcohol dependence brought in because of seizures in the hospital parking lot. Patient tried not having alcohol for the last 24 hours and has withdrawal symptoms. Patient is a heavy drinker. Patient with withdrawal symptoms and is tremulous. Patient thinks he had seizures because he stopped drinking. Patient blood glucose was 58 at time of arrival. Patient has a history of seizures but is noncompliant. Patient has diabetes no fever or chills. No exposure to coronavirus. - Past Medical History Previous Medical History?: Yes --Diabetes: Yes --Seizures: Yes - Surgical History -- No - Social History Smoking Status: Current Every Day Smoker Substance Use Type: Alcohol, Cocaine Family history Htn - Medications Home Medications: Home Medications Medication Instructions Recorded Confirmed Last Taken Type No Known Home Medications [No 09/16/18 09/21/18 Unknown History Reported Home Medications] Review of Systems ROS: Stated complaint: HYPOGLYCEMIA Other details as noted in HPI Constitutional: denies: chills, fever Eyes: denies: eye pain, eye discharge, vision change ENT: denies: ear pain, throat pain Respiratory: denies: cough, shortness of breath, wheezing Cardiovascular: denies: chest pain, palpitations Endocrine: no symptoms reported Gastrointestinal: denies: abdominal pain, nausea, diarrhea Genitourinary: denies: urgency, dysuria Musculoskeletal: denies: back pain, joint swelling, arthralgia Skin: denies: rash, lesions Neurological: confusion. denies: headache, weakness, paresthesias Psychiatric: denies: anxiety, depression Hematological/Lymphatic: denies: easy bleeding, easy bruising Medications and Allergies Allergies Allergy/AdvReac Type Severity Reaction Status Date / Time No Known Allergies Allergy Verified 09/15/18 16:58 Home Medications Medication Instructions Recorded Confirmed Last Taken Type No Known Home Medications [No 09/16/18 09/21/18 Unknown History Reported Home Medications] Active Meds: Active Medications Chlordiazepoxide HCl (Chlordiazepoxide 25 Mg Cap) 50 mg PO Q1H PRN PRN Reason: CIWY-Ar 8-15 Chlordiazepoxide HCl (Chlordiazepoxide 25 Mg Cap) 100 mg PO Q1H PRN PRN Reason: CIWA-Ar 16-25 Sodium Chloride (Nacl 0.9% 1000 Ml) 1,000 mls @ 125 mls/hr IV DIRECT ANGELITA Lorazepam (Lorazepam 2 Mg/Ml Vial) 2 mg IV Q1H PRN PRN Reason: CIWA-Ar 8-15 Last Admin: 01/16/21 17:40 Dose: 2 mg Documented by: Lorazepam (Lorazepam 2 Mg/Ml Vial) 4 mg IV Q1H PRN PRN Reason: CIWA-Ar 16-25 Lorazepam (Lorazepam 2 Mg/Ml Vial) 4 mg IV Q15MIN PRN PRN Reason: CIWA-Ar >25 Exam - Constitutional Vitals: Temp Pulse Resp BP Pulse Ox 98.6 F 97 H 22 115/54 97 01/16/21 11:04 01/16/21 20:00 01/16/21 20:00 01/16/21 20:13 01/16/21 20:00 General appearance: Present: mild distress, well-nourished - EENT Eyes: Present: PERRL ENT: hearing intact, clear oral mucosa - Neck Neck: Present: supple, normal ROM - Respiratory Respiratory effort: normal Respiratory: bilateral: CTA - Cardiovascular Heart rate: 98 Rhythm: regular Heart Sounds: Present: S1 & S2. Absent: rub, click - Extremities Extremities: pulses symmetrical, No edema Peripheral Pulses: within normal limits - Abdominal General gastrointestinal: Present: soft, non-tender, non-distended, normal bowel sounds Male genitourinary: Present: normal - Rectal Rectal Exam: deferred - Integumentary Integumentary: Present: clear, warm, dry - Musculoskeletal Musculoskeletal: gait normal, strength equal bilaterally - Psychiatric Psychiatric: appropriate mood/affect, intact judgment & insight, agitated, other (Tremulous) - Neurologic Neurologic: CNII-XII intact, moves all extremities - Allied Health Allied health notes reviewed: nursing, case management Results - Labs CBC & Chem 7: 01/17/21 04:40 01/17/21 04:40 Labs: Laboratory Last Values WBC 8.8 K/mm3 (4.5-11.0) 01/16/21 11:32 RBC 4.60 M/mm3 (3.65-5.03) 01/16/21 11:32 Hgb 15.9 gm/dl (11.8-15.2) H 01/16/21 11:32 Hct 45.3 % (35.5-45.6) 01/16/21 11:32 MCV 98 fl (84-94) H 01/16/21 11:32 MCH 35 pg (28-32) H 01/16/21 11:32 MCHC 35 % (32-34) H 01/16/21 11:32 RDW 14.8 % (13.2-15.2) 01/16/21 11:32 Plt Count 416 K/mm3 (140-440) 01/16/21 11:32 Lymph % (Auto) 23.8 % (13.4-35.0) 01/16/21 11:32 [place] % (Auto) 3.7 % (0.0-7.3) 01/16/21 11:32 Eos % (Auto) 1.6 % (0.0-4.3) 01/16/21 11:32 Baso % (Auto) 1.1 % (0.0-1.8) 01/16/21 11:32 Lymph # (Auto) 2.1 K/mm3 (1.2-5.4) 01/16/21 11:32 [place] # (Auto) 0.3 K/mm3 (0.0-0.8) 01/16/21 11:32 Eos # (Auto) 0.1 K/mm3 (0.0-0.4) 01/16/21 11:32 Baso # (Auto) 0.1 K/mm3 (0.0-0.1) 01/16/21 11:32 Seg Neutrophils % 69.8 % (40.0-70.0) 01/16/21 11:32 Seg Neutrophils # 6.1 K/mm3 (1.8-7.7) 01/16/21 11:32 Sodium 132 mmol/L (137-145) L 01/16/21 11:32 Potassium TNR 01/16/21 11:32 Chloride 98.0 mmol/L (98-107) 01/16/21 11:32 Carbon Dioxide 17 mmol/L (22-30) L 01/16/21 11:32 Anion Gap 26 mmol/L 01/16/21 11:32 BUN 9 mg/dL (9-20) 01/16/21 11:32 Creatinine 0.7 mg/dL (0.8-1.3) L 01/16/21 11:32 Estimated GFR > 60 ml/min 01/16/21 11:32 BUN/Creatinine Ratio 13 % 01/16/21 11:32 Glucose 73 mg/dL (75-100) L 01/16/21 11:32 POC Glucose 69 mg/dL (70-105) L 01/16/21 11:03 Calcium 9.4 mg/dL (8.4-10.2) 01/16/21 11:32 Magnesium 2.20 mg/dL (1.7-2.3) 01/16/21 11:32 Total Bilirubin 0.50 mg/dL (0.1-1.2) 01/16/21 11:32 Direct Bilirubin 0.2 mg/dL (0-0.2) 01/16/21 11:32 Indirect Bilirubin 0.3 mg/dL 01/16/21 11:32 AST 77 units/L (5-40) H 01/16/21 11:32 ALT 16 units/L (7-56) 01/16/21 11:32 Alkaline Phosphatase 76 units/L (35-129) 01/16/21 11:32 Ammonia 22.0 umol/L (25-60) L 01/16/21 11:32 Total Creatine Kinase 102 units/L (55-170) 01/16/21 12:30 Total Protein 8.5 g/dL (6.3-8.2) H 01/16/21 11:32 Albumin 4.3 g/dL (3.9-5) 01/16/21 11:32 Albumin/Globulin Ratio 1.0 % 01/16/21 11:32 Phenytoin 1.3 ug/mL (10.0-20.0) L 01/16/21 11:32 Plasma/Serum Alcohol 0.22 % (0-0.07) H 01/16/21 11:32 Short CBC 01/16/21 01/17/21 Range/Units 11:32 04:40 WBC 8.8 5.5 (4.5-11.0) K/mm3 Hgb 15.9 H 13.3 (11.8-15.2) gm/dl Hct 45.3 38.9 D (35.5-45.6) % Plt Count 416 282 (140-440) K/mm3 BMP 01/16/21 01/16/21 01/17/21 11:32 22:58 04:40 Sodium 132 L 143 D Potassium TNR 4.3 Chloride 98.0 111.5 H Carbon Dioxide 17 L 22 BUN 9 12 Creatinine 0.7 L 0.9 Glucose 73 L 95 Calcium 9.4 8.5 8.5 Cardiac Enzymes 01/16/21 01/16/21 Range/Units 11:32 12:30 Total Creatine Kinase 199 H 102 (55-170) units/L Liver Function 01/16/21 01/16/21 01/17/21 Range/Units 11:32 22:58 04:40 Total Bilirubin 0.50 0.60 (0.1-1.2) mg/dL Direct Bilirubin 0.2 (0-0.2) mg/dL AST 77 H 24 (5-40) units/L ALT 16 15 (7-56) units/L Alkaline Phosphatase 76 78 (35-129) units/L Albumin 4.3 3.5 L 3.7 L (3.9-5) g/dL Assessment and Plan Advance Directives: Yes (Full code) VTE prophylaxis?: Chemical Plan of care discussed with patient/family: Yes - Patient Problems (1) Alcohol withdrawal delirium, acute, mixed level of activity Current Visit: Yes Status: Acute Plan to address problem: CIWA protocol initiated IV fluids initiated (2) Alcohol withdrawal seizure Current Visit: Yes Status: Acute Qualifiers: Qualified Code(s): F10.239 - Alcohol dependence with withdrawal, unspecified; R56.9 - Unspecified convulsions Plan to address problem: Patient initiated on Keppra IV 750 every 12 Patient to be bridged to Keppra Orally Patient was on phenytoin and the level was very subtherapeutic around 1.3 No apparent discharge patient to be counseled to take Keppra on a regular basis and avoid alcohol Mental health consult for EtOH dependence EtOH level 0.22 (3) Dehydration Current Visit: Yes Status: Acute Plan to address problem: IV fluids for now (4) DVT prophylaxis Current Visit: Yes Status: Acute Plan to address problem: On heparin and GI prophylaxis
[2021-01-16] MEDS: FAMOTIDINE 20 MG/2 ML INJ IV SCH (22:38)
[2021-01-16] MEDS: levETIRAcetam 750 MG in DEXTROSE 5% IN WATER 100 ML IV SCH (22:43)
[2021-01-17 00:07] LABS: Albumin 3.5 g/dL (3.9-5); Calcium 8.5 mg/dL (8.4-10.2)
[2021-01-17 05:11] LABS: Basophils % (Auto) 0.2 % (0.0-1.8); Eosinophils # (Auto) 0.2 K/mm3 (0.0-0.4); Eosinophils % (Auto) 4.2 % (0.0-4.3); Hematocrit 38.9 % (35.5-45.6); Hemoglobin 13.3 gm/dl (11.8-15.2); Lymphocytes # (Auto) 1.6 K/mm3 (1.2-5.4); Lymphocytes % (Auto) 28.4 % (13.4-35.0); Mean Corpuscular HGB Conc 34 % (32-34); Mean Corpuscular Volume 99 fl (84-94); Monocytes # (Auto) 0.3 K/mm3 (0.0-0.8); Monocytes % (Auto) 5.4 % (0.0-7.3); Platelet Count 282 K/mm3 (140-440); Red Blood Count 3.93 M/mm3 (3.65-5.03); Red Cell Distribution Width 14.3 % (13.2-15.2)
[2021-01-17 05:39] LABS: Alanine Aminotransferase 15 units/L (7-56); Albumin 3.7 g/dL (3.9-5); BUN/Creatinine Ratio 13; Blood Urea Nitrogen 12 mg/dL (9-20); Calcium 8.5 mg/dL (8.4-10.2); Hemolysis Index 7
--- NOTE | 2021-01-17 08:33 | Progress Note ---
Assessment and Plan Assessment and plan: (1) Alcohol withdrawal delirium, acute, mixed level of activity Current Visit: Yes Status: Acute Plan to address problem: CIWA protocol initiated IV fluids initiated (2) Alcohol withdrawal seizure Current Visit: Yes Status: Acute Qualifiers: Qualified Code(s): F10.239 - Alcohol dependence with withdrawal, unspecified; R56.9 - Unspecified convulsions Plan to address problem: Patient initiated on Keppra IV 750 every 12 Patient to be bridged to Keppra Orally Patient was on phenytoin and the level was very subtherapeutic around 1.3 No apparent discharge patient to be counseled to take Keppra on a regular basis and avoid alcohol Mental health consult for EtOH dependence EtOH level 0.22 (3) Dehydration Current Visit: Yes Status: Acute Plan to address problem: IV fluids for now (4) DVT prophylaxis Current Visit: Yes Status: Acute Plan to address problem: On heparin and GI prophylaxis 01/17/2021 -Patient is on DT and continue CIWA protocol -Patient has shaking -Alcohol withdrawal seizure and currently on Keppra. History Interval history: Patient was seen and evaluated this morning Patient was shaking, agitated Alert and oriented Hospitalist Physical - Physical exam Narrative exam: Not in cardiopulmonary distress. The patient appeared well nourished and normally developed. Vital signs as documented. Head exam is unremarkable. No scleral icterus . Neck is without jugular venous distension, thyromegaly, or carotid bruits. Lungs are clear to auscultation. Cardiac exam reveals regular rate and Rhythm. Abdominal exam reveals normal bowel sounds, nontender, no organomegaly. Extremities are nonedematous and both femoral and pedal pulses are normal. 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 No focal weakness. - Constitutional Vitals: Temp Pulse Resp BP Pulse Ox 97.1 F L 69 20 123/73 96 01/17/21 08:11 01/17/21 04:38 01/17/21 08:11 01/17/21 08:11 01/17/21 04:38 General appearance: Present: mild distress, well-nourished Results - Labs CBC & Chem 7: 01/17/21 04:40 01/17/21 04:40 Labs: Laboratory Last Values WBC 5.5 K/mm3 (4.5-11.0) 01/17/21 04:40 RBC 3.93 M/mm3 (3.65-5.03) 01/17/21 04:40 Hgb 13.3 gm/dl (11.8-15.2) 01/17/21 04:40 Hct 38.9 % (35.5-45.6) D 01/17/21 04:40 MCV 99 fl (84-94) H 01/17/21 04:40 MCH 34 pg (28-32) H 01/17/21 04:40 MCHC 34 % (32-34) 01/17/21 04:40 RDW 14.3 % (13.2-15.2) 01/17/21 04:40 Plt Count 282 K/mm3 (140-440) 01/17/21 04:40 Lymph % (Auto) 28.4 % (13.4-35.0) 01/17/21 04:40 Mcdowell % (Auto) 5.4 % (0.0-7.3) 01/17/21 04:40 Eos % (Auto) 4.2 % (0.0-4.3) 01/17/21 04:40 Baso % (Auto) 0.2 % (0.0-1.8) 01/17/21 04:40 Lymph # (Auto) 1.6 K/mm3 (1.2-5.4) 01/17/21 04:40 Mcdowell # (Auto) 0.3 K/mm3 (0.0-0.8) 01/17/21 04:40 Eos # (Auto) 0.2 K/mm3 (0.0-0.4) 01/17/21 04:40 Baso # (Auto) 0.0 K/mm3 (0.0-0.1) 01/17/21 04:40 Seg Neutrophils % 61.8 % (40.0-70.0) 01/17/21 04:40 Seg Neutrophils # 3.4 K/mm3 (1.8-7.7) 01/17/21 04:40 Sodium 143 mmol/L (137-145) D 01/17/21 04:40 Potassium 4.3 mmol/L (3.6-5.0) 01/17/21 04:40 Chloride 111.5 mmol/L (98-107) H 01/17/21 04:40 Carbon Dioxide 22 mmol/L (22-30) 01/17/21 04:40 Anion Gap 14 mmol/L 01/17/21 04:40 BUN 12 mg/dL (9-20) 01/17/21 04:40 Creatinine 0.9 mg/dL (0.8-1.3) 01/17/21 04:40 Estimated GFR > 60 ml/min 01/17/21 04:40 BUN/Creatinine Ratio 13 % 01/17/21 04:40 Glucose 95 mg/dL (75-100) 01/17/21 04:40 POC Glucose 92 mg/dL (70-105) 01/16/21 20:44 Hemoglobin A1c 4.9 % (4-6) 01/17/21 04:40 Calcium 8.5 mg/dL (8.4-10.2) 01/17/21 04:40 Phosphorus 2.60 mg/dL (2.5-4.5) 01/16/21 22:58 Magnesium 1.90 mg/dL (1.7-2.3) 01/16/21 22:58 Total Bilirubin 0.60 mg/dL (0.1-1.2) 01/17/21 04:40 Direct Bilirubin 0.2 mg/dL (0-0.2) 01/16/21 11:32 Indirect Bilirubin 0.3 mg/dL 01/16/21 11:32 AST 24 units/L (5-40) 01/17/21 04:40 ALT 15 units/L (7-56) 01/17/21 04:40 Alkaline Phosphatase 78 units/L (35-129) 01/17/21 04:40 Ammonia 22.0 umol/L (25-60) L 01/16/21 11:32 Total Creatine Kinase 102 units/L (55-170) 01/16/21 12:30 Total Protein 5.9 g/dL (6.3-8.2) L D 01/17/21 04:40 Albumin 3.7 g/dL (3.9-5) L 01/17/21 04:40 Albumin/Globulin Ratio 1.7 % 01/17/21 04:40 Phenytoin 1.3 ug/mL (10.0-20.0) L 01/16/21 11:32 Plasma/Serum Alcohol < 0.01 % (0-0.07) 01/17/21 04:40 Rahman/IV: Voiding Method Urinal Active Medications - Current Medications Current Medications: Generic Name Dose Route Start Last Admin Trade Name Freq PRN Reason Stop Dose Admin Acetaminophen 650 mg 01/16/21 21:27 Acetaminophen 325 Mg Tab PO Q4H PRN Pain MILD(1-3)/Fever >100.5/BARBOSA Chlordiazepoxide HCl 50 mg 01/16/21 11:19 Chlordiazepoxide 25 Mg Cap PO Q1H PRN CIWA-Ar 8-15 Chlordiazepoxide HCl 100 mg 01/16/21 11:19 Chlordiazepoxide 25 Mg Cap PO Q1H PRN CIWA-Ar 16-25 Famotidine 20 mg 01/16/21 22:00 01/16/21 22:38 Famotidine 20 Mg/2 Ml Inj IV 20 mg BID ANGELITA Administration Hydromorphone HCl 0.5 mg 01/16/21 21:27 Hydromorphone 1 Mg/1 Ml Inj IV Q3H PRN Pain , Severe (7-10) Sodium Chloride 1,000 mls @ 125 mls/hr 01/16/21 15:30 01/16/21 22:38 Nacl 0.9% 1000 Ml IV 125 mls/hr DIRECT ANGELITA Administration Levetiracetam 750 mg/ Dextrose 107.5 mls @ 400 mls/hr 01/16/21 22:00 01/16/21 22:43 IV 400 mls/hr Q12HR ANGELITA Administration Lorazepam 2 mg 01/16/21 11:19 01/16/21 17:40 Lorazepam 2 Mg/Ml Vial IV 2 mg Q1H PRN Administration CIWA-Ar 8-15 Lorazepam 4 mg 01/16/21 11:19 Lorazepam 2 Mg/Ml Vial IV Q1H PRN CIWA-Ar 16-25 Lorazepam 4 mg 01/16/21 11:19 Lorazepam 2 Mg/Ml Vial IV Q15MIN PRN CIWA-Ar >25 Metoclopramide HCl 10 mg 01/16/21 21:27 Metoclopramide 10 Mg/2 Ml Inj IV Q6H PRN Nausea And Vomiting Ondansetron HCl 4 mg 01/16/21 21:27 Ondansetron 4 Mg/2 Ml Inj IV Q8H PRN Nausea And Vomiting Oxycodone/Acetaminophen 1 tab 01/16/21 21:27 Oxycodone /Acetaminophen 5-325mg Tab PO Q6H PRN Pain, Moderate (4-6) Sodium Chloride 10 ml 01/16/21 22:00 01/16/21 22:38 Sodium Chloride 0.9% 10 Ml Flush Syringe IV 10 ml BID ANGELITA Administration Sodium Chloride 10 ml 01/16/21 21:27 Sodium Chloride 0.9% 10 Ml Flush Syringe IV PRN PRN LINE FLUSH
[2021-01-17] MEDS: FAMOTIDINE 20 MG/2 ML INJ IV SCH ×2 (10:57→21:35)
[2021-01-17] MEDS: LORazepam 2 MG/ML VIAL IV PRN ×4 (10:57→21:42)
[2021-01-17] MEDS: levETIRAcetam 750 MG in DEXTROSE 5% IN WATER 100 ML IV SCH ×2 (11:15→21:35)
[2021-01-17] MEDS ORDERED: NICOTINE 21 MG/24 HR PATCH TD SCH (15:00)
[2021-01-18] MEDS: LORazepam 2 MG/ML VIAL IV PRN ×2 (01:55→04:42)
[2021-01-18 05:02] LABS: Alanine Aminotransferase 16 units/L (7-56); Albumin 3.6 g/dL (3.9-5); BUN/Creatinine Ratio 11; Blood Urea Nitrogen 10 mg/dL (9-20); Calcium 8.6 mg/dL (8.4-10.2); Hemolysis Index 3
[2021-01-18 07:36] VITALS: BP 123/84
--- NOTE | 2021-01-18 07:50 | Discharge Summary ---
Providers - Providers Date of Admission: 01/16/21 15:51 Date of discharge: 01/18/21 Attending physician: COBY ALEXANDRE MD Primary care physician: SCHOOL OCCUPATIONAL THERAPIST Hospitalization Reason for admission: Alcohol withdrawal DT Condition: Fair Hospital course: History of present illness: 55-year-old male with no significant past medical history except alcohol dependence brought in because of seizures in the hospital parking lot. Patient tried not having alcohol for the last 24 hours and has withdrawal symptoms. Patient is a heavy drinker. Patient with withdrawal symptoms and is tremulous. Patient thinks he had seizures because he stopped drinking. Patient blood glucose was 58 at time of arrival. Patient has a history of seizures but is noncompliant. Patient has diabetes no fever or chills. No exposure to coronavirus. Hospital course -Patient was admitted and treated for alcohol withdrawal delirium tremens according to alcohol withdrawal protocol. Patient did not have any seizure after admission. He had tremors yesterday. But this morning he does not have any tremor patient was calm and cooperative. Patient was alert and oriented. He understands the risk benefits of going AMA and he signed AMA. I told him patient may develop alcohol withdrawal seizure and he understands the risk. Patient said he has history of alcohol withdrawal before. Patient judgment was okay. There is no reason to keep him AGAINST MEDICAL ADVICE because patient knows what he is doing. Disposition: DC-07 LEFT AGAINST MED ADVICE Time spent for discharge: 35 minutes - Discharge Diagnoses (1) Alcohol withdrawal delirium, acute, mixed level of activity Status: Acute (2) Alcohol withdrawal seizure Status: Acute Qualifiers: Qualified Code(s): F10.239 - Alcohol dependence with withdrawal, unspecified; R56.9 - Unspecified convulsions (3) EtOH dependence Status: Chronic Core Measure Documentation - Palliative Care Palliative Care/ Comfort Measures: Not Applicable - Core Measures Any of the following diagnoses?: none Exam - Physical Exam Narrative exam: Not in cardiopulmonary distress. The patient appeared well nourished and normally developed. Vital signs as documented. Head exam is unremarkable. No scleral icterus . Neck is without jugular venous distension, thyromegaly, or carotid bruits. Lungs are clear to auscultation. Cardiac exam reveals regular rate and Rhythm. Abdominal exam reveals normal bowel sounds, nontender, no organomegaly. Extremities are nonedematous and both femoral and pedal pulses are normal. 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 No focal weakness. - Constitutional Vitals: Temp Pulse Resp BP Pulse Ox 97.5 F L 79 18 123/84 99 01/18/21 07:34 01/18/21 07:34 01/18/21 07:34 01/18/21 07:34 01/18/21 07:34 Plan Activity: no restrictions Weight Bearing Status: Full Weight Bearing Diet: regular Follow up with: PRIMARY CAREMD [Primary Care Provider] - 3-5 Days Forms: AMA Form
== END 2021-01-18 07:57 | disposition left against medical advice (07) | DRG 894 ==
LOC: ED 11:01 → 4A 15:51
PROVIDERS: ADMIT Internal Medicine; ATTEND Internal Medicine
DX: F10.231 Alcohol dependence with withdrawal delirium (principal); F17.200 Nicotine dependence, unspecified, uncomplicated; E11.9 Type 2 diabetes mellitus without complications; R56.9 Unspecified convulsions
CPT/HCPCS: 36415; 70450; 80048; 80053; 80076; 80185; 80320; 82040; 82140; 82310; 82550; 82962; 83036; 83735; 84100; 85025; 96365; 96375; G0378; G0480; J1165; J1630; J1953; J2060; J3411; J7030; J7050

== ENCOUNTER 2021-11-13 21:45 | Emergency (ER) | payer SELFPAY ==
[2021-11-13 21:56] VITALS: BP 133/82
[2021-11-13] MEDS ORDERED: PHENYTOIN 1,000 MG in SODIUM CHLORIDE 0.9% 250ML 250 ML IV ONE (22:22)
--- NOTE | 2021-11-13 22:28 | Emergency Department Report ---
ED Seizure HPI - General Chief Complaint: Seizure Stated Complaint: SEIZURE Time Seen by Provider: 11/13/21 22:18 Source: patient, EMS Mode of arrival: Stretcher Limitations: Altered Mental Status - History of Present Illness Initial Comments: Patient is 56 years old male with history of seizure on Dilantin. Patient also had history of alcohol withdrawal seizure before. Patient brought to the emergency room via EMS for evaluation of 1 episode of generalized tonic clonic seizure. Upon arrival to the ER patient is alert, oriented x3 in no acute dis tress no injury. Patient stated that he is out of his Dilantin for approximately 1 month now. Patient stated that he still drinking but he is not drinking daily. He said last drink was yesterday. Patient denied any tremor, visual hallucination, suicidal ideation or homicidal ideation. MD Complaint: seizure -: Sudden Description of Episode: loss of consciousness, tonic-clonic movement, post-event confusion Witnessed:: Yes Trauma: No Seizure History: known seizure disorder Possible Precipitating Event: none Associated Symptoms: denies other symptoms Treatments Prior to Arrival: none - Related Data Home Medications Medication Instructions Recorded Confirmed Last Taken No Known Home Medications [No 09/16/18 09/21/18 Unknown Reported Home Medications] Allergies Allergy/AdvReac Type Severity Reaction Status Date / Time No Known Allergies Allergy Verified 09/15/18 16:58 ED Review of Systems ROS: Stated complaint: SEIZURE Other details as noted in HPI Comment: All other systems reviewed and negative Constitutional: denies: chills, fever Respiratory: denies: cough, shortness of breath, SOB with exertion Cardiovascular: denies: chest pain, palpitations Gastrointestinal: denies: abdominal pain, nausea Musculoskeletal: denies: back pain Neurological: denies: headache, weakness, numbness, paresthesias, confusion Psychiatric: denies: depression, auditory hallucinations, visual hallucinations, homicidal thoughts, suicidal thoughts ED Past Medical Hx - Past Medical History Hx Congestive Heart Failure: No Hx Diabetes: Yes Hx Seizures: Yes Hx Asthma: No Hx COPD: No - Surgical History Past Surgical History?: No - Social History Smoking Status: Current Every Day Smoker Substance Use Type: Alcohol, Cocaine - Medications Home Medications: Home Medications Medication Instructions Recorded Confirmed Last Taken Type No Known Home Medications [No 09/16/18 09/21/18 Unknown History Reported Home Medications] ED Physical Exam - General Limitations: Altered Mental Status General appearance: alert, in no apparent distress - Head Head exam: Present: atraumatic, normocephalic, normal inspection - Eye Eye exam: Present: normal appearance - ENT ENT exam: Present: normal exam, normal orophraynx, mucous membranes moist - Neck Neck exam: Present: normal inspection, full ROM. Absent: tenderness, meningismus - Respiratory Respiratory exam: Present: normal lung sounds bilaterally - Cardiovascular Cardiovascular Exam: Present: regular rate, normal rhythm, normal heart sounds - GI/Abdominal GI/Abdominal exam: Present: soft, normal bowel sounds. Absent: distended, tenderness, guarding, rebound, rigid, organomegaly, mass, bruit, pulsatile mass, hernia - Extremities Exam Extremities exam: Present: normal inspection, full ROM, normal capillary refill. Absent: tenderness - Back Exam Back exam: Absent: CVA tenderness (R), CVA tenderness (L) - Neurological Exam Neurological exam: Present: alert, oriented X3, CN II-XII intact - Psychiatric Psychiatric exam: Present: normal mood. Absent: homicidal ideation, suicidal ideation - Skin Skin exam: Present: warm, intact, normal color ED Course Vital Signs 11/13/21 21:56 Temperature 98.4 F Pulse Rate 100 H Respiratory 18 Rate Blood Pressure 133/82 [Left] O2 Sat by Pulse 99 Oximetry Critical care attestation.: If time is entered above; I have spent that time in minutes in the direct care of this critically ill patient, excluding procedure time. ED Disposition Clinical Impression: Seizure Disposition: 07 LEFT AWOL/ELOPED Is pt being admited?: No Condition: Undetermined Referrals: PRIMARY CARE, [Primary Care Provider] - 3-5 Days
== END 2021-11-13 23:00 | disposition left against medical advice (07) ==
LOC: ED 21:45
DX: G40.909 Epilepsy, unspecified, not intractable, without status epilepticus (principal); E11.9 Type 2 diabetes mellitus without complications; F17.200 Nicotine dependence, unspecified, uncomplicated
CPT/HCPCS: 99282; J1165; J7050

== ENCOUNTER 2021-11-14 02:56 | Emergency (ER) | payer SELFPAY ==
[2021-11-14 03:17] VITALS: BP 150/90
--- NOTE | 2021-11-14 06:20 | Emergency Department Report ---
HPI - General Chief Complaint: Seizure Time Seen by Provider: 11/14/21 06:16 - HPI HPI: [place] 23 The patient is a 56-year-old male present with a chief complaint of seizures. Patient has a history epilepsy and states has been off his Dilantin for 1 month. Patient initially came in after seizure but left after refusing treatment. Patient went across the street to the gas station where he had a witnessed tonic-clonic seizure and was brought back to the ED. Patient currently denies complaints ED Past Medical Hx - Past Medical History Hx Diabetes: Yes Hx Seizures: Yes Hx Asthma: No Hx COPD: No - Surgical History Past Surgical History?: No - Family History Family history: no significant - Social History Smoking Status: Current Every Day Smoker Substance Use Type: Alcohol, Cocaine - Medications Home Medications: Home Medications Medication Instructions Recorded Confirmed Last Taken Type No Known Home Medications [No 09/16/18 09/21/18 Unknown History Reported Home Medications] ED Review of Systems ROS: Stated complaint: SEIZURE AND FALL Other details as noted in HPI Constitutional: no symptoms reported Eyes: denies: eye pain ENT: denies: throat pain Respiratory: no symptoms reported Cardiovascular: denies: chest pain Endocrine: no symptoms reported Gastrointestinal: denies: abdominal pain Musculoskeletal: denies: back pain Neurological: denies: headache Physical Exam - Physical Exam Vital Signs: Vital Signs 11/14/21 03:15 Temperature 98.3 F Pulse Rate 100 H Respiratory 16 Rate Blood Pressure 150/90 [Left] O2 Sat by Pulse 100 Oximetry Physical Exam: GENERAL: The patient is well-developed well-nourished male lying on stretcher resting company not appearing to be in acute distress. [] HEENT: Normocephalic. Atraumatic. Extraocular motions are intact. Patient has moist mucous membranes. NECK: Supple. Trachea midline CHEST/LUNGS: There is no respiratory distress noted. HEART/CARDIOVASCULAR: Regular. There is no tachycardia. SKIN: There is no rash. There is no edema. There is no diaphoresis. NEURO: The patient is asleep but awakens to voice and light touch and is oriented. The patient is cooperative. The patient has no focal neurologic deficits. The patient has normal speech MUSCULOSKELETAL: There is no evidence of acute injury. ED Course Vital Signs 11/14/21 03:15 Temperature 98.3 F Pulse Rate 100 H Respiratory 16 Rate Blood Pressure 150/90 [Left] O2 Sat by Pulse 100 Oximetry - Reevaluation(s) Reevaluation #1: 11/14/21 07:54 Patient refusing all treatment and labs leaving AMA ED Medical Decision Making - Differential Diagnosis Seizure Critical care attestation.: If time is entered above; I have spent that time in minutes in the direct care of this critically ill patient, excluding procedure time. ED Disposition Clinical Impression: Seizure Disposition: 07 LEFT AGAINST MEDICAL ADVICE Is pt being admited?: No Does the pt Need Aspirin: No Condition: Undetermined Referrals: PRIMARY CARE, [Primary Care Provider] - 3-5 Days Time of Disposition: 07:54 (Patient leaving AMA)
== END 2021-11-14 10:00 | disposition left against medical advice (07) ==
LOC: ED 02:56
DX: G40.909 Epilepsy, unspecified, not intractable, without status epilepticus (principal); E11.9 Type 2 diabetes mellitus without complications; F17.200 Nicotine dependence, unspecified, uncomplicated
CPT/HCPCS: 99283